=== PATIENT | female | born 1950 | race Caucasian/White ===

== ENCOUNTER 2019-06-11 06:10 | Day surgery (SDC) | payer MEDICARE, OTHER ==
[2019-06-11] MEDS: CEFAZOLIN 2 GM/50 ML (PMX) 50 ML IVPB (06:30)
[2019-06-11] MEDS: POLYMYXIN/BACITRACIN 1L IRRIG (07:19)
[2019-06-11] MEDS ORDERED: LIDOCAINE 2% (SDV) 5 ML INJ (07:53)
[2019-06-11] MEDS ORDERED: MIDAZOLAM 1 MG/ML 2 ML INJ (07:53)
[2019-06-11] MEDS ORDERED: ROPIVACAINE 0.5 % 30 ML VIAL (07:53)
[2019-06-11] MEDS ORDERED: PROPOFOL 20 ML (07:53)
[2019-06-11] MEDS ORDERED: FENTAnyl 50 MCG/ML VIAL (07:53)
[2019-06-11] MEDS ORDERED: KETAMINE (50 MG/ML) 10 ML VIAL (07:57)
[2019-06-11] MEDS ORDERED: LABETALOL HCL 20MG INJ IV (08:00)
[2019-06-11] MEDS ORDERED: hydrALAzine 20 MG INJ IV (08:00)
[2019-06-11] MEDS ORDERED: HYDROmorphONE 1 MG/5 ML IV SYRINGE IV (08:00)
[2019-06-11] MEDS ORDERED: OXYCODONE/ACETAMINOPHEN (5/325) TAB PO ×2 (08:00)
[2019-06-11] MEDS ORDERED: DESFLURANE 15 MIN (08:00)
[2019-06-11] MEDS ORDERED: ONDANSETRON 4 MG INJ (08:31)
[2019-06-11] MEDS ORDERED: DEXAMETHASONE 4 MG/ML 5 ML INJ (08:31)
[2019-06-11] MEDS ORDERED: CEFAZOLIN 1 GM INJ (08:31)
[2019-06-11] MEDS: BUPIVACAINE 0.5% (SDV) 30 ML INJ (09:59)
[2019-06-11] MEDS: HYDROmorphONE 1 MG/5 ML IV SYRINGE IV ×2 (10:33→10:45)
== END 2019-06-11 13:20 | disposition home or self-care (01) ==
LOC: SDS 06:10
DX: M21.612 Bunion of left foot (principal); M20.42 Other hammer toe(s) (acquired), left foot; E66.01 Morbid (severe) obesity due to excess calories; Z68.41 Body mass index [BMI] 40.0-44.9, adult; Z79.82 Long term (current) use of aspirin
CPT/HCPCS: 28285; 73630-LT; 88304; 88311